=== PATIENT | female | born 1950 | race Caucasian/White ===

== ENCOUNTER 2017-11-10 15:24 | Inpatient (IN) ==
[2017-11-10 17:02] LABS: Basophils % 0.2 % (0.0-0.8); Eosinophils # 0.1 10*3/uL (0.0-0.87); Eosinophils % 0.5 % (0.00-10.9); Hematocrit 43.8 VOL% (35.7-47.0); Hemoglobin 14.8 GM/DL (12.0-16.0); Immature Granulocytes % 0.6 %; Immature Granulocytes Absolute 0.06 #; Lymphocytes # 3.1 10*3/uL (1.4-4.0); Lymphocytes % 30.4 % (21.3-54.2); Mean Corpuscular HGB Conc 33.8 GM/DL (32-36); Mean Corpuscular Hemoglobin 30 PG (27-34); Mean Corpuscular Volume 89.8 FL (87-102); Mean Platelet Volume 9.5 FL (9.6-12.0); Monocytes % 9.5 % (1.7-12.7); Neutrophils % 58.8 % (38.7-73.9); Platelet Count 242 T/CUMM (130-400); Red Blood Count 4.88 MC/CUMM (3.8-5.5); Red Cell Distribution Width 13.1 % (9.3-17.3); White Blood Count 10.2 T/CUMM (4-12)
[2017-11-10 17:06] LABS: Albumin 3.8 G/DL (3.4-5.0); Bilirubin,Total 0.5 MG/DL (0.2-1.0); Calcium 9.5 MG/DL (8.5-10.1); INR 1.3; Osmolality,Calculated 282.4 MOS/KG (273-304); PT Patient Result 13.1 SECS; Potassium 3.4 MMOL/L (3.5-5.1); Total Protein 7.4 G/DL (6.4-8.3)
[2017-11-10 17:07] LABS: Troponin I < 0.015 NG/ML (0.00-0.045)
[2017-11-10 17:12] LABS: Free T4 (Free Thyroxine) 0.82 NG/DL (0.76-1.46); Thyroid Stimulating Hormone 1.92 uIU/ml (0.358-3.74)
[2017-11-10 17:13] LABS: Partial Thromboplastin Time 42.3 SECS (0-40)
[2017-11-10 17:17] LABS: Apearance,Urine CLEAR (Clear); Bacteria,Urine Occasional /HPF (Few); Bilirubin,Urine Negative (Negative); Blood, Urine Moderate mg/dL (Negative); Glucose,Urine (UA) Negative (Negative); Ketones,Urine 5 mg/dL (Negative); Nitrite,Urine Negative (Negative); Protein,Urine Negative; RBC,Urine 2 /HPF (0-4); Squamous Epithelial Cell,Urine Occasional /HPF (0-10); Urine Color Straw (Yellow); Urine Specific Gravity 1.004 (1.001-1.035); Urine Urobilinogen < 2.0 EU/DL (0.2-1.0); WBC,Urine <1 /HPF (0-6)
[2017-11-10] MEDS ORDERED: ONDANSETRON 4 MG/2 ML VIAL IV PRN (18:39)
[2017-11-10] MEDS ORDERED: MAGNESIUM SULF RIDER 4 GM in PREMIX 1 EACH IV PRN (18:39)
[2017-11-10] MEDS ORDERED: MAGNESIUM SULF RIDER 2 GM in PREMIX 1 EACH IV PRN (18:39)
[2017-11-10 19:30] LABS: Troponin I < 0.015 NG/ML (0.00-0.045)
[2017-11-10 22:44] LABS: Troponin I < 0.015 NG/ML (0.00-0.045)
[2017-11-11 00:37] LABS: Troponin I < 0.015 NG/ML (0.00-0.045)
[2017-11-11] MEDS ORDERED: RIVAROXABAN 20 MG TABLET PO SCH (08:00)
[2017-11-11] MEDS: PANTOPRAZOLE 40 MG TABLET PO SCH (08:24)
[2017-11-11] MEDS: LOSARTAN 50 MG TABLET PO SCH (08:24)
[2017-11-11] MEDS ORDERED: hydroCHLOROthiazide 25 MG TABLET PO SCH (09:00)
[2017-11-12] MEDS: LOSARTAN 50 MG TABLET PO SCH (08:17)
[2017-11-12] MEDS: PANTOPRAZOLE 40 MG TABLET PO SCH (08:17)
[2017-11-12 10:06] LABS: Osmolality,Calculated 281.7 MOS/KG (273-304)
[2017-11-13 08:57] LABS: Basophils % 0.3 % (0.0-0.8); Eosinophils % 0.6 % (0.00-10.9); Hematocrit 43.4 VOL% (35.7-47.0); Hemoglobin 14.3 GM/DL (12.0-16.0); Immature Granulocytes % 0.9 %; Immature Granulocytes Absolute 0.06 #; Lymphocytes # 2.1 10*3/uL (1.4-4.0); Lymphocytes % 31.1 % (21.3-54.2); Mean Corpuscular HGB Conc 32.9 GM/DL (32-36); Mean Corpuscular Hemoglobin 30 PG (27-34); Mean Corpuscular Volume 91.4 FL (87-102); Mean Platelet Volume 9.8 FL (9.6-12.0); Monocytes # 0.7 10*3/uL (0.11-0.8); Monocytes % 9.8 % (1.7-12.7); Neutrophils # 3.9 10*3/uL (1.4-7.4); Neutrophils % 57.3 % (38.7-73.9); Platelet Count 253 T/CUMM (130-400); Red Blood Count 4.75 MC/CUMM (3.8-5.5); Red Cell Distribution Width 13.1 % (9.3-17.3); White Blood Count 6.7 T/CUMM (4-12)
[2017-11-13 09:12] LABS: Calcium 9.1 MG/DL (8.5-10.1); Osmolality,Calculated 281.4 MOS/KG (273-304); Potassium 4.2 MMOL/L (3.5-5.1)
[2017-11-13] MEDS: LOSARTAN 50 MG TABLET PO SCH (09:33)
[2017-11-13] MEDS: PANTOPRAZOLE 40 MG TABLET PO SCH (09:33)
[2017-11-13 11:54] VITALS: BP 147/67
== END 2017-11-13 14:30 | disposition home or self-care (01) | DRG 310 ==
LOC: N.ED 15:24 → N.EDINP 17:49 → N.CC 18:45 → N.TELES 11-11 12:07
PROVIDERS: ADMIT Internal Medicine Cardiovascular Disease; ATTEND Internal Medicine Cardiovascular Disease